=== PATIENT | male | born 1980 | race Caucasian/White ===

== ENCOUNTER 2017-11-09 09:40 | Emergency (ER) | payer OTHER ==
[~2017-11-09] VITALS: Ht 180.3 cm; Wt 90.7 kg
[~2017-11-09 09:40] MED LIST: ULTRAM50 MG PO
== END 2017-11-09 10:37 | disposition home or self-care (01) ==
LOC: ED 09:40
DX: S01.112A Laceration without foreign body of left eyelid and periocular area, initial encounter (principal); F17.200 Nicotine dependence, unspecified, uncomplicated; W22.8XXA Striking against or struck by other objects, initial encounter; Y93.89 Activity, other specified; Y92.69 Other specified industrial and construction area as the place of occurrence of the external cause; Y99.9 Unspecified external cause status

== ENCOUNTER 2020-10-09 10:58 | Emergency (ER) | payer OTHER ==
[~2020-10-09] VITALS: Ht 180.3 cm; Wt 86.2 kg
== END 2020-10-09 11:12 | disposition left against medical advice (07) ==
LOC: ED 10:58
DX: Z01.00 Encounter for examination of eyes and vision without abnormal findings (principal); Z53.21 Procedure and treatment not carried out due to patient leaving prior to being seen by health care provider

== ENCOUNTER → 2022-06-10 | Outpatient (CLI) | payer OTHER | END | disposition home or self-care (01) | LOC: RAD 11:26 | PROVIDERS: ATTEND Chiropractor | DX: M47.816 Spondylosis without myelopathy or radiculopathy, lumbar region (principal); M25.78 Osteophyte, vertebrae ==

== ENCOUNTER 2022-12-15 07:43 | Emergency (ER) | payer OTHER ==
[~2022-12-15] VITALS: Ht 180.3 cm; Wt 86.2 kg
[2022-12-15] MEDS ORDERED: Motrin,Rufen800 MG PO (08:13)
[2022-12-15] MEDS ORDERED: CLEOCIN HCL150 MG PO (08:13)
== END 2022-12-15 08:16 | disposition home or self-care (01) ==
LOC: ED 07:43
DX: K04.7 Periapical abscess without sinus (principal)